=== PATIENT | male | born 1995 | race African-American/Black ===

== ENCOUNTER 2020-07-09 10:49 | Emergency (ER) | payer OTHER ==
[~2020-07-09] VITALS: Ht 193 cm; Wt 109.1 kg
[2020-07-09 10:50] VITALS: BP 135/71
== END 2020-07-09 12:17 | disposition home or self-care (01) ==
LOC: EMS 10:57
DX: M25.561 Pain in right knee (principal); M25.562 Pain in left knee; R03.0 Elevated blood-pressure reading, without diagnosis of hypertension
CPT/HCPCS: Z7502

== ENCOUNTER 2021-03-05 10:01 | Emergency (ER) | payer OTHER ==
[~2021-03-05] VITALS: Ht 162.6 cm; Wt 115.9 kg
[2021-03-05 12:40] VITALS: BP 148/98
== END 2021-03-05 12:41 | disposition home or self-care (01) ==
LOC: EMS 10:03
DX: S86.812A Strain of other muscle(s) and tendon(s) at lower leg level, left leg, initial encounter (principal); V89.2XXA Person injured in unspecified motor-vehicle accident, traffic, initial encounter; Y93.89 Activity, other specified; Y92.89 Other specified places as the place of occurrence of the external cause; Y99.8 Other external cause status
CPT/HCPCS: 99283